=== PATIENT | male | born 2005 | race Caucasian/White ===

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

== ENCOUNTER 2024-07-03 19:54 | Emergency (ER) | payer MEDICAID ==
[~2024-07-03] VITALS: Ht 170.2 cm; Wt 57.7 kg
[2024-07-03] MEDS ORDERED: D-ME118S56 PO (20:09)
[2024-07-03 20:31] LABS: COVID AG,FIA SOURCE NASAL SWAB
[2024-07-03 20:56] LABS: SARS-COV2 (COVID) ANTIGEN,FIA Negative (Negative)
[2024-07-03 21:02] LABS: INFLUENZA TYPE A NEGATIVE FOR TYPE A (NEGATIVE); INFLUENZA TYPE B NEGATIVE FOR TYPE B (NEGATIVE)
[2024-07-03] MEDS: IBUPROFEN 600 MG TABLET PO ONE (22:34)
[2024-07-03 22:51] LABS: ALBUMIN 4.2 g/dL (3.4-5.0); BILIRUBIN,DIRECT 0.4 mg/dL (0.00-0.20); BILIRUBIN,TOTAL 2.6 mg/dL (0.1-1.0); TOTAL PROTEIN, SERUM 7.9 g/dL (6.4-8.2)
[2024-07-04 00:02] VITALS: BP 123/68; PULSE 79; RESP 20; TEMP 98.3; O2SAT 99
== END 2024-07-04 00:32 | disposition admitted as inpatient to this hospital (09) ==
LOC: EMS 19:54
DX: J06.9 Acute upper respiratory infection, unspecified (principal); Z20.822 Contact with and (suspected) exposure to COVID-19
CPT/HCPCS: 71045; 80076; 87804; 99284; 36415-L1; 36415-TC